=== PATIENT | male | born 1970 | race American Indian/Alaskan Native ===

== ENCOUNTER 2019-07-29 11:30 | Emergency (ER) | payer MEDICAID ==
[~2019-07-29] VITALS: Ht 167.6 cm; Wt 86.4 kg
[~2019-07-29 11:30] MED LIST: GABA-330 PO; HYDR-3686 PO; MORP10CA11 PO; TEG100T PO; [UNRECOGNIZED DRUG - CODE] PO
[2019-07-29 11:32] VITALS: BP 135/55
--- NOTE | 2019-07-29 11:45 | NUR ---
ATTEMPT TO IRRIGATE PT'S EYES WITH SALINE. PT IS UNABLE TO TOLERATE DUE TO THE PAIN.
[2019-07-29] MEDS ORDERED: proparacaine 0.5% ophthalmic drops 15ml EACHEYE ONE (12:50)
--- NOTE | 2019-07-29 13:15 | NUR ---
ADMIN EYE DROPS BILATERALLY FOR PAIN PRIOR TO INSERTING FELIPA LENS.
--- NOTE | 2019-07-29 13:26 | NUR ---
APPLY FELIPA LENS TO LEFT EYE FOR FLUSHING. PT UNABLE TO TOLERATE BOTH EYES BEING FLUSHED AT THE SAME TIME. KEEPS OPENING THE EYE AND THE LENS COMES OUT.
--- NOTE | 2019-07-29 14:10 | NUR ---
APPLY FELIPA LENS TO RIGHT EYE FOR IRRIGATION WITH 100OML SALINE. LEFT EYE HAS BEEN IRRIGATED WITH NS 1000ML AND LENS REMOVED.
[2019-07-29] MEDS ORDERED: ERYT1OIN6 EACHEYE (14:40)
--- NOTE | 2019-07-29 14:50 | NUR ---
PT REFUSES VISUAL ACCUITY TESTING. NOTIFY .
== END 2019-07-29 15:01 | disposition home or self-care (01) ==
LOC: ER 11:30
DX: H10.213 Acute toxic conjunctivitis, bilateral (principal); T50.995A Adverse effect of other drugs, medicaments and biological substances, initial encounter; E11.9 Type 2 diabetes mellitus without complications; Z86.19 Personal history of other infectious and parasitic diseases; Z86.69 Personal history of other diseases of the nervous system and sense organs; Z79.899 Other long term (current) drug therapy; Y92.89 Other specified places as the place of occurrence of the external cause
CPT/HCPCS: 99284

== ENCOUNTER 2019-07-29 17:48 | Emergency (ER) | payer MEDICAID ==
[~2019-07-29] VITALS: Ht 167.6 cm; Wt 75.0 kg
[~2019-07-29 17:48] MED LIST changes: +ERYT1OIN6 EACHEYE
[2019-07-29] MEDS ORDERED: levetiracetam 250mg tablet PO ONE (19:20)
[2019-07-29] MEDS ORDERED: LORazepam 1 MG tablet PO ONE (19:20)
[2019-07-29 19:29] VITALS: BP 167/81
== END 2019-07-29 19:32 | disposition home or self-care (01) ==
LOC: ER 17:48
DX: R56.9 Unspecified convulsions (principal); E11.9 Type 2 diabetes mellitus without complications; Z86.19 Personal history of other infectious and parasitic diseases; Z79.899 Other long term (current) drug therapy
CPT/HCPCS: 99284